=== PATIENT | female | born 1940 | race Caucasian/White ===

== ENCOUNTER 2020-03-17 07:10 | Day surgery (SDC) | payer MEDICARE ==
[2020-03-14 10:14] LABS: BASOPHILS % (AUTO) 0.7 % (0.0-5.0); EOSINOPHILS % (AUTO) 1.2 % (0.0-8.0); HEMATOCRIT 41.7 % (36-48); LYMPHOCYTES % (AUTO) 20.4 % (21.0-51.0); MEAN CORPUSCULAR HEMOGLOBIN 30.1 pg (27.0-33.0); MEAN CORPUSCULAR HGB CONC 31.4 g/dL (32.0-36.0); MEAN CORPUSCULAR VOLUME 95.9 fL (79-99); MONOCYTES % (AUTO) 12.1 % (3.0-13.0); NEUTROPHILS % (AUTO) 65.3 % (40.0-77.0); PLATELET COUNT (AUTO) 261 K/uL (130-400); RED BLOOD CELL COUNT(AUTO) 4.35 MIL/uL (4.00-5.50); RED CELL DISTRIBUTION WIDTH 13.4 % (11.0-15.5); WHITE BLOOD COUNT (AUTO) 5.9 K/uL (4.8-10.8)
[2020-03-14 10:15] LABS: APPEARANCE,URINE Clear (CLEAR); BILIRUBIN,URINE Negative (NEGATIVE); COLOR,URINE Yellow (YELLOW); GLUCOSE, URINE (UA) Negative (NEGATIVE); KETONES,URINE Negative (NEGATIVE); LEUKOCYTE ESTERASE ,URINE Small (NEGATIVE); NITRATE,URINE Negative (NEGATIVE); OCCULT BLOOD,URINE Negative (NEGATIVE); PROTEIN,URINE Negative (NEGATIVE)
[2020-03-14 10:25] LABS: POTASSIUM 5.4 mmol/L (3.5-5.1)
[2020-03-14 10:25] LABS: BACTERIA,URINE Few /HPF (None Seen); RBC,URINE 0-1 /HPF (0-1); SQUAMOUS EPITHELIAL CELL,UR 0-2 /HPF (0-2)
[2020-03-14 10:29] LABS: INR 0.96 (0.85-1.15); PARTIAL THROMBOPLASTIN TIME 26.8 SEC (26.3-35.5); PROTHROMBIN TIME 10.4 SEC (9.6-11.6)
[2020-03-14 10:33] VITALS: BP 121/65
--- NOTE | 2020-03-16 11:38 | NUR ---
LABS ABNORMAL K+, UA REPORTED TO DR. GREY. LABS FAXED TO [facility] TO SHOW TO DR. GREY. AWAITNG FOR FURTHER ORDERS
[2020-03-17] VITALS (9 sets, daily range): BP systolic 112–157; BP diastolic 52–83
[~2020-03-17] VITALS: Ht 167.6 cm; Wt 94.7 kg
[~2020-03-17 07:10] MED LIST: APIX5TAB PO; ESCI10TA54 PO; FURO20TA4 PO; ISOS30TA6 PO; LEVO25TA4 PO; LOSA50TA64 PO; METO-408 PO; ROSU5TAB12 PO
[2020-03-17] MEDS ORDERED: HEPARIN SODIUM 1000UNIT/ML 10ML VIAL ONE (08:48)
[2020-03-17] MEDS ORDERED: IOHEXOL 350 MG/ML 100ML INFUS..BTL IV ONE (08:48)
[2020-03-17] MEDS ORDERED: LIDOCAINE HCL 2% 20ML ONE (08:48)
[2020-03-17] MEDS ORDERED: IOHEXOL-350 50ML VIAL IV ONE (08:48)
[2020-03-17] MEDS ORDERED: MIDAZOLAM HCL 1 MG/ML 2ML VIAL ONE (09:16)
[2020-03-17] MEDS ORDERED: DEXTROSE 50%-WATER 50 ML DISP.SYRIN IV PRN (09:45)
[2020-03-17] MEDS ORDERED: GLUCAGON 1MG KIT 1 MG ML IM PRN (09:45)
[2020-03-17] MEDS ORDERED: HEPARIN 25000 UNITS/250 ML D5W 250 ML IV ONE (10:24)
== END 2020-03-17 13:40 | disposition home or self-care (01) ==
LOC: DAH 07:10
PROVIDERS: ATTEND Internal Medicine Cardiovascular Disease
DX: I25.119 Atherosclerotic heart disease of native coronary artery with unspecified angina pectoris (principal); I10 Essential (primary) hypertension; E78.5 Hyperlipidemia, unspecified; E03.9 Hypothyroidism, unspecified; I48.0 Paroxysmal atrial fibrillation; I25.2 Old myocardial infarction; Z85.048 Personal history of other malignant neoplasm of rectum, rectosigmoid junction, and anus; Z88.1 Allergy status to other antibiotic agents; Z88.8 Allergy status to other drugs, medicaments and biological substances
CPT/HCPCS: 36415; 71045; 80048; 81001; 85025; 85610; 85730; 93005; 93458; A4215; A4216; A4221; A4222; A4223 ×3; A4606; A4663; C1760; C1894; J1644 ×2; J2250; J3490; Q9965; Q9967 ×2; 99156; 99157

== ENCOUNTER → 2020-04-13 | Outpatient (CLI) | payer MEDICARE ==
[~2020-04-13] MED LIST changes: +ALBUTEROL SULFATE 0.083% 2.5 MG/3 ML INH IH ONE; -ISOS30TA6 PO
== END | disposition home or self-care (01) ==
LOC: RESP 12:40
PROVIDERS: ATTEND Internal Medicine Cardiovascular Disease
DX: R06.09 Other forms of dyspnea (principal)
CPT/HCPCS: 94060; 94727; 94729

== ENCOUNTER 2021-08-14 15:01 | Emergency (ER) | payer MEDICARE ==
[~2021-08-14] VITALS: Ht 167.6 cm; Wt 91.6 kg
[~2021-08-14 15:01] MED LIST changes: -ALBUTEROL SULFATE 0.083% 2.5 MG/3 ML INH IH ONE; +ESCI-8 PO; -ESCI10TA54 PO
[2021-08-14] MEDS ORDERED: IPRATROPIUM 0.5 MG/2.5 ML INH IH ONE (15:30)
[2021-08-14] MEDS ORDERED: SOLU-MEDROL 125MG VIAL IVP ONE (15:30)
[2021-08-14 15:31] LABS: BASOPHILS % (AUTO) 0.3 % (0.0-5.0); HEMATOCRIT 48.9 % (36-48); LYMPHOCYTES % (AUTO) 11.9 % (21.0-51.0); MEAN CORPUSCULAR HEMOGLOBIN 30.2 pg (27.0-33.0); MEAN CORPUSCULAR HGB CONC 31.7 g/dL (32.0-36.0); MEAN CORPUSCULAR VOLUME 95.3 fL (79-99); MONOCYTES % (AUTO) 5.6 % (3.0-13.0); NEUTROPHILS % (AUTO) 80.6 % (40.0-77.0); PLATELET COUNT (AUTO) 289 K/uL (130-400); RED BLOOD CELL COUNT(AUTO) 5.13 MIL/uL (4.00-5.50); WHITE BLOOD COUNT (AUTO) 15.3 K/uL (4.8-10.8)
[2021-08-14 15:44] LABS: INR 0.98 (0.85-1.15); PROTHROMBIN TIME 10.7 SEC (9.6-11.6)
[2021-08-14 15:46] LABS: PARTIAL THROMBOPLASTIN TIME 21.9 SEC (26.3-35.5)
[2021-08-14 15:49] LABS: CREATININE 1.4 mg/dL (0.5-1.5); POTASSIUM 4.2 mmol/L (3.5-5.1)
[2021-08-14] MEDS ORDERED: ROSU5TAB12 PO (15:50)
[2021-08-14] MEDS ORDERED: PANT40TA54 PO (15:50)
[2021-08-14] MEDS ORDERED: PRED10TA3 PO (15:50)
[2021-08-14] MEDS ORDERED: APIX5TAB PO (15:50)
[2021-08-14] MEDS ORDERED: BUDE0.5A3 IH (15:50)
[2021-08-14] MEDS ORDERED: LOSA50TA64 PO (15:50)
[2021-08-14] MEDS ORDERED: LEVAHFA IH (15:50)
[2021-08-14] MEDS ORDERED: FLUT1BLS3 IH (15:50)
[2021-08-14] MEDS ORDERED: NYST5ORA7 PO (15:50)
[2021-08-14] MEDS ORDERED: XUD IH (15:50)
[2021-08-14] MEDS ORDERED: CHOL100046 PO (15:50)
[2021-08-14 15:52] LABS: B-TYPE NATRIURETIC PEPTIDE 160 pg/mL (0-100)
[2021-08-14 15:54] LABS: ALBUMIN 3.9 g/dL (3.5-5.0); BILIRUBIN,TOTAL 1.1 mg/dL (0.2-1.0); TOTAL PROTEIN, SERUM 7.9 g/dL (6.0-8.3)
[2021-08-14 15:57] VITALS: BP 108/67
[2021-08-14 17:55] LABS: APPEARANCE,URINE Clear (CLEAR); BILIRUBIN,URINE Negative (NEGATIVE); COLOR,URINE Yellow (YELLOW); GLUCOSE, URINE (UA) Negative (NEGATIVE); KETONES,URINE Negative (NEGATIVE); LEUKOCYTE ESTERASE ,URINE Moderate (NEGATIVE); NITRATE,URINE Negative (NEGATIVE); OCCULT BLOOD,URINE Negative (NEGATIVE); PROTEIN,URINE Negative (NEGATIVE)
[2021-08-14 18:19] LABS: BACTERIA,URINE Rare /HPF (None Seen); RBC,URINE 0-1 /HPF (0-1); SQUAMOUS EPITHELIAL CELL,UR Few /HPF (0-2)
[2021-08-14 18:20] LABS: HYALINE CASTS, URINE 0-1 /LPF (0-1 /LPF)
== END 2021-08-14 18:44 | disposition home or self-care (01) ==
LOC: EDH 15:01
DX: R06.00 Dyspnea, unspecified (principal); T48.6X5A Adverse effect of antiasthmatics, initial encounter; J44.9 Chronic obstructive pulmonary disease, unspecified; I48.91 Unspecified atrial fibrillation; I50.9 Heart failure, unspecified; I25.10 Atherosclerotic heart disease of native coronary artery without angina pectoris; Z88.0 Allergy status to penicillin; Z88.1 Allergy status to other antibiotic agents; Z88.8 Allergy status to other drugs, medicaments and biological substances; Y92.89 Other specified places as the place of occurrence of the external cause
CPT/HCPCS: 36415; 71045; 80053; 81001; 82550; 83880; 84484; 85025; 85610; 85730; 87088; 93005; 94640; 96374; 99285; J2930